=== PATIENT | female | born 1950 | race Caucasian/White ===

== ENCOUNTER 2017-05-03 06:25 | Inpatient (IN) | payer BC ==
[~2017-05-03] VITALS: Ht 157.5 cm; Wt 87.9 kg
[2017-05-03] VITALS (10 sets, daily range): BP systolic 112–158; BP diastolic 54–96; PULSE 79–127; RESP 16–20; TEMP 98.1–99.7; O2SAT 95–100
[2017-05-03] MEDS ORDERED: IRON1TAB8 PO (06:39)
[2017-05-03] MEDS ORDERED: CALC1TAB87 PO (06:39)
[2017-05-03] MEDS ORDERED: LORA-650 PO (06:39)
[2017-05-03] MEDS ORDERED: LIPI40TA PO (06:39)
[2017-05-03] MEDS ORDERED: PROT40TA PO (06:39)
[2017-05-03] MEDS ORDERED: ASPI-516 CHEW (06:40)
[2017-05-03] MEDS ORDERED: SODIUM CHLOR 0.9% 1000 ML INJ 1,000 ML IV ONE ×2 (07:08)
[2017-05-03] MEDS ORDERED: RESP: ALBUTEROL 2.5 MG/IPRATROPIUM 0.5 MG NEB (SCH) INH ONE (07:15)
[2017-05-03] MEDS ORDERED: ACETAMINOPHEN 325 MG TAB PO ONE (07:15)
--- NOTE | 2017-05-03 07:36 | RADRPT ---
EXAM DATE/TIME: 05/03/2017 07:19 [place] COMPARISON: No previous studies available for comparison. INDICATIONS : Cough, chest pain, and shortness of breath for four days. MEDICAL HISTORY : Asthma. SURGICAL HISTORY : ENCOUNTER: Initial ACUITY: 4 - 6 days PAIN SCORE: 6/10 LOCATION: Bilateral chest FINDINGS: A single view of the chest demonstrates the lungs to be symmetrically aerated without evidence of mas s, infiltrate or effusion. The cardiomediastinal contours are unremarkable. Osseous structures are intact. CONCLUSION: Normal examination for a patient of this age. Sulaiman Davenport MD on May 03, 2017 at 7:33 Board Certified Radiologist. This report was verified electronically.
--- NOTE | 2017-05-03 07:37 | PD ---
HPI Chief Complaint: Cold / Flu Symptoms Time Seen by Provider: 07:01 Travel History International Travel<30 days: No Contact w/Intl Traveler<30days: No Traveled to known affect area: No History of Present Illness HPI 66-year-old female arrives by private vehicle. She has had fever, rhinorrhea, cough and anorexia for about 24 hours. Subjective fever reported. Patient has a history of asthma. She has a history of aspirin aspiration in the remote past. Severity moderate. Timing constant. PFSH Past Medical History Asthma: Yes High Cholesterol: Yes Gastrointestinal Disorders: Yes (bowel resection) Inguinal Hernia: Yes (x 2) Influenza Vaccination: Yes : 4 Para: 4 Past Surgical History Cholecystectomy: Yes Hysterectomy: Yes (still has ovaries) Tonsillectomy: Yes Social History Alcohol Use: No Tobacco Use: No Substance Use: No Allergies-Medications (Allergen,Severity, Reaction): Coded Allergies: No Known Allergies (Unverified , 05/03/17) Reported Meds & Prescriptions Reported Meds & Active Scripts Active Reported Aspirin 81 Mg Chew 81 Mg CHEW DAILY Calcium 600 with Vitamin D (Calcium Carbonate-Cholecalciferol) 600-400 mg-Unit Tab 1 Tab PO DAILY Lipitor (Atorvastatin Calcium) 40 Mg Tab 40 Mg PO HS Allergy Relief (Loratadine) 10 Mg Tab 10 Mg PO DAILY Niferex Tablet (Multi-Vit w/ Iron) 150MG-60-1 Tablet 1 Tab PO DAILY Protonix (Pantoprazole Sodium) 40 Mg Tab 40 Mg PO DAILY Review of Systems Except as stated in HPI: all other systems reviewed are Neg General / Constitutional: Positive: Fever Respiratory: Positive: Cough, Shortness of Breath Physical Exam Narrative GENERAL: 66 yo F, WNWD, moderate distress 2/2 flulike symptoms Vital Signs Date Time Temp Pulse Resp B/P (MAP) Pulse Ox O2 Delivery O2 Flow Rate FiO2 05/03/17 07:05 110 18 158/78 (104) 99 Room Air 05/03/17 06:29 99.7 127 16 155/96 (115) 97 SKIN: Warm and dry. HEAD: Atraumatic. Normocephalic. EYES: Pupils equal and round. No scleral icterus. No injection or drainage. ENT: No nasal bleeding or discharge. Mucous membranes pink and moist. Posterior oropharynx widely patent. Trace erythema. No exudate asymmetry or deviation of the soft palate. NECK: Trachea midline. No JVD. CARDIOVASCULAR: Tachycardia. Regular rhythm. RESPIRATORY: No accessory muscle use. Clear to auscultation. Breath sounds equal bilaterally. GASTROINTESTINAL: Abdomen soft, non-tender, nondistended. Hepatic and splenic margins not palpable. MUSCULOSKELETAL: Extremities without clubbing, cyanosis, or edema. No obvious deformities. NEUROLOGICAL: Awake and alert. No obvious cranial nerve deficits. Motor grossly within normal limits. Five out of 5 muscle strength in the arms and legs. Normal speech. PSYCHIATRIC: Appropriate mood and affect; insight and judgment normal. Data Data Last Documented VS Vital Signs Date Time Temp Pulse Resp B/P (MAP) Pulse Ox O2 Delivery O2 Flow Rate FiO2 05/03/17 07:35 97 Room Air 05/03/17 07:35 18 05/03/17 07:05 110 05/03/17 06:29 99.7 Orders Orders Influenzae A/B Antigen (05/03/17 06:49) Sepsis Workup Initiated (05/03/17 ) Complete Blood Count With Diff (05/03/17 07:08) Comprehensive Metabolic Panel (05/03/17 07:08) Lactic Acid Sepsis Protocol (05/03/17 07:08) Blood Culture (05/03/17 07:08) Chest, Single Ap (05/03/17 07:08) Ecg Monitoring (05/03/17 07:08) Iv Access Insert/Monitor (05/03/17 07:08) Oximetry (05/03/17 07:08) Oxygen Administration (05/03/17 07:08) Acetaminophen (Tylenol) (05/03/17 07:15) Sodium Chlor 0.9% 1000 Ml Inj (Ns 1000 M (05/03/17 07:08) Sodium Chlor 0.9% 1000 Ml Inj (Ns 1000 M (05/03/17 07:08) Albuterol-Ipratropium Neb (Duoneb Neb) (05/03/17 07:15) Ondansetron Inj (Zofran Inj) (05/03/17 07:45) Oseltamivir (Tamiflu) (05/03/17 09:15) Ceftriaxone Inj (Rocephin Inj) (05/03/17 09:15) Azithromycin Inj (Zithromax Inj) (05/03/17 09:15) Place In Observation (05/03/17 ) Vital Signs (Adult) Q4H (05/03/17 09:12) Activity Oob Ad [place] (05/03/17 09:12) Diet Heart Healthy (05/03/17 Breakfast) Sodium Chlor 0.9% 1000 Ml Inj (Ns 1000 M (05/03/17 09:12) Sodium Chloride 0.9% Flush (Ns Flush) (05/03/17 09:30) Sodium Chloride 0.9% Flush (Ns Flush) (05/03/17 21:00) Acetaminophen (Tylenol) (05/03/17 09:30) Basic Metabolic Panel (Bmp) (05/04/17 06:00) Complete Blood Count With Diff (05/04/17 06:00) Resp Oxygen Jw C Titrat 1-4 L (05/03/17 ) Enoxaparin Inj (Lovenox Inj) (05/03/17 09:45) Naloxone Inj (Narcan Inj) (05/03/17 09:30) Docusate Sodium-Senna (Gia-Colace) (05/03/17 21:00) Magnesium Hydroxide Liq (Milk Of Magnesi (05/03/17 09:30) Sennosides (Senokot) (05/03/17 09:30) Bisacodyl Supp (Dulcolax Supp) (05/03/17 09:30) Lactulose Liq (Lactulose Liq) (05/03/17 09:30) Benzonatate (Tessalon) (05/03/17 09:30) Oxymetazoline 0.05% Jw [place] (Afrin 0.0 (05/03/17 09:30) Albuterol-Ipratropium Neb (Duoneb Neb) (05/03/17 09:30) Lactic Acid (05/03/17 09:19) Admit Order (Ed Use Only) (05/03/17 ) Vital Signs (Adult) Q4H (05/03/17 09:31) Diet Heart Healthy (05/03/17 Lunch) Activity Oob With Assistance (05/03/17 09:31) Labs Laboratory Tests Test 05/03/17 07:25 White Blood Count 12.8 TH/MM3 Red Blood Count 4.62 MIL/MM3 Hemoglobin 15.0 GM/DL Hematocrit 42.3 % Mean Corpuscular Volume 91.7 FL Mean Corpuscular Hemoglobin 32.5 PG Mean Corpuscular Hemoglobin Concent 35.4 % Red Cell Distribution Width 13.7 % Platelet Count 200 TH/MM3 Mean Platelet Volume 9.4 FL Neutrophils (%) (Auto) 81.7 % Lymphocytes (%) (Auto) 8.6 % Monocytes (%) (Auto) 8.7 % Eosinophils (%) (Auto) 0.6 % Basophils (%) (Auto) 0.4 % Neutrophils # (Auto) 10.4 TH/MM3 Lymphocytes # (Auto) 1.1 TH/MM3 Monocytes # (Auto) 1.1 TH/MM3 Eosinophils # (Auto) 0.1 TH/MM3 Basophils # (Auto) 0.0 TH/MM3 CBC Comment DIFF FINAL Differential Comment Blood Urea Nitrogen 12 MG/DL Creatinine 0.86 MG/DL Random Glucose 109 MG/DL Total Protein 7.7 GM/DL Albumin 4.1 GM/DL Calcium Level 9.9 MG/DL Alkaline Phosphatase 142 U/L Aspartate Amino Transf (AST/SGOT) 22 U/L Alanine Aminotransferase (ALT/SGPT) 28 U/L Total Bilirubin 0.6 MG/DL Sodium Level 142 MEQ/L Potassium Level 3.8 MEQ/L Chloride Level 110 MEQ/L Carbon Dioxide Level 23.6 MEQ/L Anion Gap 8 MEQ/L Estimat Glomerular Filtration Rate 66 ML/MIN Lactic Acid Level 2.9 mmol/L [facility] Medical Decision Making Medical Screen Exam Complete: Yes Emergency Medical Condition: Yes Medical Record Reviewed: Yes Differential Diagnosis flue, pna, sepsis Narrative Course CBC & BMP Diagram 05/03/17 07:25 Total Protein 7.7, Albumin 4.1, Calcium Level 9.9, Alkaline Phosphatase 142 H, Aspartate Amino Transf (AST/SGOT) 22, Alanine Aminotransferase (ALT/SGPT) 28, Total Bilirubin 0.6 Lactic acid 2.9 The patient will be admitted for IV antibiotics and for breathing treatments Case discussed with Dr. Doyle Last Impressions Chest X-Ray 05/03/17 0708 Signed Impressions: Service Date/Time: Friday, May 03, 2017 07:19 - CONCLUSION: Normal examination for a patient of this age. Sulaiman Davenport MD Diagnosis Primary Impression: Dyspnea Qualified Codes: R06.00 - Dyspnea, unspecified Additional Impression: Influenza Admitting Information Admitting Physician Requests: Admit Harley Hodges MD May 03, 2017 07:37
[2017-05-03] MEDS ORDERED: ONDANSETRON HCL 4 MG/2 ML VIAL IV PUSH ONE (07:45)
[2017-05-03 07:47] LABS: AUTOMATED NEUTROPHIL # 10.4 TH/MM3 (1.8-7.7); BASOPHIL % 0.4 % (0.0-2.0); EOSINOPHIL # 0.1 TH/MM3 (0-0.4); EOSINOPHIL % 0.6 % (0.0-4.0); HEMATOCRIT 42.3 % (35.0-46.0); LYMPH % 8.6 % (9.0-44.0); LYMPHOCYTE # 1.1 TH/MM3 (1.0-4.8); MEAN CELL VOLUME 91.7 FL (80.0-100.0); MEAN CORPUSCULAR HEMOGLOBIN 32.5 PG (27.0-34.0); MEAN CORPUSCULAR HGB CONC 35.4 % (32.0-36.0); MEAN PLATELET VOLUME 9.4 FL (7.0-11.0); MONO % 8.7 % (0.0-8.0); MONOCYTE # 1.1 TH/MM3 (0-0.9); NEUT % 81.7 % (16.0-70.0); PLATELET COUNT 200 TH/MM3 (150-450); RED BLOOD COUNT 4.62 MIL/MM3 (4.00-5.30); RED CELL DISTRIBUTION WIDTH 13.7 % (11.6-17.2); WHITE BLOOD COUNT 12.8 TH/MM3 (4.0-11.0)
[2017-05-03 08:01] LABS: LACTIC ACID SEPSIS PROTOCOL 2.9 mmol/L (0.4-2.0)
[2017-05-03 08:17] LABS: ALBUMIN 4.1 GM/DL (3.4-5.0); ALT (GPT) 28 U/L (10-53); AST (GOT) 22 U/L (15-37); BICARBONATE 23.6 MEQ/L (21.0-32.0); BLOOD UREA NITROGEN 12 MG/DL (7-18); CALCIUM 9.9 MG/DL (8.5-10.1); CHLORIDE 110 MEQ/L (98-107); CREATININE 0.86 MG/DL (0.50-1.00); GLOMERULAR FILTRATION RATE 66 ML/MIN (>89); GLUCOSE,RANDOM 109 MG/DL (74-106); SODIUM (NA) 142 MEQ/L (136-145)
[2017-05-03 08:19] LABS: ALKALINE PHOSPHATASE 142 U/L (45-117); TOTAL BILIRUBIN ADULT 0.6 MG/DL (0.2-1.0); TOTAL PROTEIN 7.7 GM/DL (6.4-8.2)
--- NOTE | 2017-05-03 09:12 | HHI.HP ---
HPI Service [facility] Primary Care Physician Unknown Admission Diagnosis Diagnoses: Chief Complaint: cough, shortness of breath Travel History International Travel<30 Days: No Contact w/Intl Traveler <30 Da: No Traveled to Known Affected Are: No History of Present Illness This is a 66-year-old female with history of asthma and dyslipidemia, with no other significant comorbidities presenting to the hospital with a 1 day history of runny nose with clear secretions, cough productive with clear sputum, low- grade subjective fever, chills, nausea with no vomiting, muscle pain, joint pains, mild headache with no possible infectious source. She took [place] plus with no relief hence patient presented to the hospital today. Patient denies any abdominal pain, diarrhea, chest pain but she does have mild shortness of breath and poor oral intake. Lactic acid is 2.9. is at bedside. Of note, she does not have any frequent asthma exacerbations. She had her last asthma attack a couple of months ago for which she was also treated for pneumonia as outpatient. She also had an episode of aspiration pneumonia after aspirating on aspirin several years ago. Review of Systems ROS Limitations: Other (All other pertinent systems were reviewed and are negative.) Past Family Social History Past Medical History Dyslipidemia Asthma - last attack was a couple months ago Past Surgical History Bowel resection - volvolus <?> Hysterectomy - DUB Both shoulder surgery for rotator cuff tonsillectomy Hernia repair x 2 Reported Medications Aspirin 81 Mg Chew 81 Mg CHEW DAILY Calcium 600 with Vitamin D (Calcium Carbonate-Cholecalciferol) 600-400 mg-Unit Tab 1 Tab PO DAILY Lipitor (Atorvastatin Calcium) 40 Mg Tab 40 Mg PO HS Allergy Relief (Loratadine) 10 Mg Tab 10 Mg PO DAILY Niferex Tablet (Multi-Vit w/ Iron) 150MG-60-1 Tablet 1 Tab PO DAILY Protonix (Pantoprazole Sodium) 40 Mg Tab 40 Mg PO DAILY Allergies: Coded Allergies: No Known Allergies (Unverified , 05/03/17) Family History Both parents had CVD Siblings had colon cancer Social History Previous smoker, stopped 5 years ago. Physical Exam Vital Signs Vital Signs Date Time Temp Pulse Resp B/P (MAP) Pulse Ox O2 Delivery O2 Flow Rate FiO2 05/03/17 07:35 97 Room Air 05/03/17 07:35 18 97 Room Air 05/03/17 07:05 110 18 158/78 (104) 99 Room Air 05/03/17 06:29 99.7 127 16 155/96 (115) 97 Physical Exam GENERAL: Not in acute distress, well-nourished. Mildly short of breath. HEAD: Atraumatic. Normocephalic. No temporal or scalp tenderness. EYES: PERRL, full EOMs, no jaundice, nonicteric, pink conjunctivae without injection, dry oral mucosa. ENT: Nose without bleeding, purulent drainage.Uvula midline. Airway patent. NECK: Trachea midline, no mass, no obvious thyromegaly. CARDIOVASCULAR: Mildly tachycardic, regular rhythm without murmurs, gallops, or rubs. RESPIRATORY: Clear to auscultation with normal respiratory effort. Breath sounds equal bilaterally. No use of accessory muscles of respiration. No wheezing. GASTROINTESTINAL: Abdomen soft, normal bowel sounds, non-tender, nondistended. [place] and exam deferred. MUSCULOSKELETAL: Extremities without clubbing, cyanosis, or edema. INTEGUMENTARY: Warm and dry, no rash of generalized distribution. NEUROLOGICAL: Awake, alert, oriented 3. No obvious cranial nerve deficits. Moves all 4 extremities, muscle strength testing 5 over 5. Motor and sensory grossly within normal limits. .Supple neck, no meningeal signs. Grossly negative cerebellar examination. No focal neurologic deficits. PSYCHIATRIC: Normal mood, appropriate affect. Laboratory Laboratory Tests Test 05/03/17 07:25 White Blood Count 12.8 Red Blood Count 4.62 Hemoglobin 15.0 Hematocrit 42.3 Mean Corpuscular Volume 91.7 Mean Corpuscular Hemoglobin 32.5 Mean Corpuscular Hemoglobin Concent 35.4 Red Cell Distribution Width 13.7 Platelet Count 200 Mean Platelet Volume 9.4 Neutrophils (%) (Auto) 81.7 Lymphocytes (%) (Auto) 8.6 Monocytes (%) (Auto) 8.7 Eosinophils (%) (Auto) 0.6 Basophils (%) (Auto) 0.4 Neutrophils # (Auto) 10.4 Lymphocytes # (Auto) 1.1 Monocytes # (Auto) 1.1 Eosinophils # (Auto) 0.1 Basophils # (Auto) 0.0 CBC Comment DIFF FINAL Differential Comment Blood Urea Nitrogen 12 Creatinine 0.86 Random Glucose 109 Total Protein 7.7 Albumin 4.1 Calcium Level 9.9 Alkaline Phosphatase 142 Aspartate Amino Transf (AST/SGOT) 22 Alanine Aminotransferase (ALT/SGPT) 28 Total Bilirubin 0.6 Sodium Level 142 Potassium Level 3.8 Chloride Level 110 Carbon Dioxide Level 23.6 Anion Gap 8 Estimat Glomerular Filtration Rate 66 Lactic Acid Level 2.9 Date/Time Source Procedure Growth Status 05/03/17 07:25 Blood Peripheral Aerobic Blood Culture Pending Received 05/03/17 07:25 Blood Peripheral Anaerobic Blood Culture Pending Received 05/03/17 00:00 Nasal Washing Influenza Types A,B Antigen ([place]) - Final NEGATIVE FOR FLU A AND B ANTIGEN.... Complete Result Diagram: 05/03/1725 05/03/17 07 Imaging Last Impressions Chest X-Ray 05/03/1708 Signed Impressions: Service Date/Time: Wednesday, May 03, 2017 07:19 - CONCLUSION: Normal examination for a patient of this age. Sulaiman Davenport MD Capcristóbal VTE Risk Assessment Caprini VTE Risk Assessment: Mod/High Risk (score >= 2) Caprini Risk Assessment Model Point Value = 1 Point Value = 2 Point Value = 3 Point Value = 5 Age 41-60 Minor surgery BMI > 25 kg/m2 Swollen legs Varicose veins or History of unexplained or recurrent spontaneous Oral contraceptives or hormone replacement Sepsis (< 1 month) Serious lung disease, including pneumonia (< 1 month) Abnormal pulmonary function Acute myocardial infarction Congestive heart failure (< 1 month) History of inflammatory bowel disease Medical patient at bed rest Age 61-74 Arthroscopic surgery Major open surgery (> 45 min) Laparoscopic surgery (> 45 min) Malignancy Confined to bed (> 72 hours) Immobilizing plaster cast Central venous access Age >= 75 History of VTE Family history of VTE Factor V Leiden Prothrombin [id number] Lupus anticoagulant Anticardiolipin antibodies Elevated serum homocysteine Heparin-induced thrombocytopenia Other congenital or acquired thrombophilia Stroke (< 1 month) Elective arthroplasty Hip, pelvis, or leg fracture Acute spinal cord injury (< 1 month) Prophylaxis Regimen Total Risk Factor Score Risk Level Prophylaxis Regimen 0-1 Low Early ambulation 2 Moderate Order ONE of the following: *Sequential Compression Device (SCD) *Heparin 5000 units SQ BID 3-4 Higher Order ONE of the following medications: *Heparin 5000 units SQ TID *Enoxaparin/Lovenox 40 mg SQ daily (WT < 150 kg, CrCl > 30 mL/min) *Enoxaparin/Lovenox 30 mg SQ daily (WT < 150 kg, CrCl > 10-29 mL/min) *Enoxaparin/Lovenox 30 mg SQ BID (WT < 150 kg, CrCl > 30 mL/min) AND/OR *Sequential Compression Device (SCD) 5 or more Highest Order ONE of the following medications: *Heparin 5000 units SQ TID (Preferred with Epidurals) *Enoxaparin/Lovenox 40 mg SQ daily (WT < 150 kg, CrCl > 30 mL/min) *Enoxaparin/Lovenox 30 mg SQ daily (WT < 150 kg, CrCl > 10-29 mL/min) *Enoxaparin/Lovenox 30 mg SQ BID (WT < 150 kg, CrCl > 30 mL/min) AND *Sequential Compression Device (SCD) Assessment and Plan Assessment and Plan This is a 66-year-old female with history of asthma and dyslipidemia presenting with shortness of breath, fever, joint pain and runny nose Sepsis secondary to systemic viral illness versus influenza - rapid flu negative , however with leukocytosis, tachycardia, and definite signs of systemic illness , and high risk for flu, we will treat S flu versus viral illness, doubt pneumonia. Chest x-ray personally reviewed unremarkable. Status post 1 dose of ceftriaxone and azithromycin, hold off on antibiotics, continue Tamiflu for 5 days. Continue IVF, status post 2 L bolus. Recheck lactic acid. Admit as inpatient. Symptomatic management with oxymetazoline, duo nebs every 4 hours as needed every 6 hours [id number], normal saline, Tylenol for fever, Tessalon for cough. Recheck CBC tomorrow. Check sputum culture. Mild asthma exacerbation-no active wheezing, duo nebs around the clock and as needed. Dyslipidemia-restart atorvastatin Dehydration-continue IVF. Lovenox for DVT prophylaxis Heart healthy diet Code Status Full code Discussed Condition With Patient and Mary Doyle MD May 03, 2017 09:12
[2017-05-03] MEDS ORDERED: cefTRIAXone INJ 1,000 MG in SODIUM CHLORIDE 0.9% INJ 100 ML IV ONE (09:15)
[2017-05-03] MEDS ORDERED: AZITHROMYCIN INJ 500 MG in SODIUM CHLOR 0.9% 250 ML INJ 250 ML IV ONE (09:15)
[2017-05-03] MEDS ORDERED: OSELTAMIVIR PHOSPHATE 75 MG CAP PO ONE (09:15)
[2017-05-03] MEDS ORDERED: SENNOSIDES 8.6 MG TAB PO PRN (09:30)
[2017-05-03] MEDS ORDERED: SODIUM CHLORIDE 0.9% FLUSH 10 ML FLUSH IV FLUSH PRN (09:30)
[2017-05-03] MEDS ORDERED: NALOXONE HCL 0.4 MG/ML AMP IV PUSH PRN (09:30)
[2017-05-03] MEDS ORDERED: RESP: ALBUTEROL 2.5 MG/IPRATROPIUM 0.5 MG NEB (PRN) NEB ×2 (09:30→10:00)
[2017-05-03] MEDS ORDERED: OXYMETAZOLINE HCL 0.05% 15 ML NASAL SPRAY NASAL PRN (09:30)
[2017-05-03] MEDS ORDERED: LACTULOSE SYRUP 20 GM/30 ML CUP PO PRN (09:30)
[2017-05-03] MEDS ORDERED: BISACODYL 10 MG SUPP RECTAL PRN (09:30)
[2017-05-03] MEDS ORDERED: MAGNESIUM HYDROXIDE SUSP 30 ML CUP PO PRN (09:30)
[2017-05-03] MEDS: ENOXAPARIN SODIUM 30 MG/0.3 ML SYRINGE SQ SCH (10:03)
[2017-05-03] MEDS: BENZONATATE 100 MG CAP PO PRN (10:19)
[2017-05-03] MEDS: SODIUM CHLOR 0.9% 1000 ML INJ 1,000 ML IV SCH ×2 (10:19→17:33)
[2017-05-03] MEDS: ACETAMINOPHEN 325 MG TAB PO PRN ×2 (10:40→18:31)
[2017-05-03] MEDS: RESP: ALBUTEROL 2.5 MG/IPRATROPIUM 0.5 MG NEB (SCH) NEB ×2 (13:18→19:23)
[2017-05-03] MEDS: LORATADINE 10 MG TAB PO SCH (14:49)
[2017-05-03] MEDS: PANTOPRAZOLE SOD 40 MG DELAYED RELEASE TAB PO SCH (14:49)
[2017-05-03] MEDS: OSELTAMIVIR PHOSPHATE 75 MG CAP PO SCH (20:23)
[2017-05-03] MEDS: DOCUSATE SODIUM 50 MG/SENNA 8.6 MG TAB PO SCH (20:24)
[2017-05-03] MEDS: SODIUM CHLORIDE 0.9% FLUSH 10 ML FLUSH IV FLUSH SCH (20:24)
[2017-05-03] MEDS ORDERED: ATORVASTATIN 40 MG TAB PO SCH (21:00)
[2017-05-04] VITALS: BP 124/55; PULSE 87; PULSE 93; RESP 18; TEMP 98.5; O2SAT 97
[2017-05-04] MEDS: ACETAMINOPHEN 325 MG TAB PO PRN ×2 (01:23→05:52)
[2017-05-04] MEDS: BENZONATATE 100 MG CAP PO PRN (01:25)
[2017-05-04] MEDS ORDERED: IBUPROFEN 600 MG TAB PO ONE (01:45)
[2017-05-04] MEDS: SODIUM CHLOR 0.9% 1000 ML INJ 1,000 ML IV SCH ×2 (02:04→10:26)
[2017-05-04 03:46] VITALS: PULSE 81
[2017-05-04 04:00] VITALS: BP 119/60; PULSE 76; RESP 16; TEMP 98; O2SAT 93
[2017-05-04 07:40] LABS: AUTOMATED NEUTROPHIL # 5.5 TH/MM3 (1.8-7.7); BASOPHIL % 0.5 % (0.0-2.0); EOSINOPHIL # 0.1 TH/MM3 (0-0.4); EOSINOPHIL % 1.2 % (0.0-4.0); HEMOGLOBIN 12.2 GM/DL (11.6-15.3); LYMPH % 20.9 % (9.0-44.0); LYMPHOCYTE # 1.7 TH/MM3 (1.0-4.8); MEAN CELL VOLUME 93.8 FL (80.0-100.0); MEAN CORPUSCULAR HEMOGLOBIN 32.8 PG (27.0-34.0); MEAN PLATELET VOLUME 9.5 FL (7.0-11.0); MONO % 9.5 % (0.0-8.0); MONOCYTE # 0.8 TH/MM3 (0-0.9); NEUT % 67.9 % (16.0-70.0); PLATELET COUNT 155 TH/MM3 (150-450); RED BLOOD COUNT 3.73 MIL/MM3 (4.00-5.30); RED CELL DISTRIBUTION WIDTH 13.8 % (11.6-17.2)
[2017-05-04 08:00] VITALS: BP 115/57; PULSE 60; PULSE 86; RESP 20; TEMP 97.7; O2SAT 96
[2017-05-04 08:00] LABS: BICARBONATE 23.5 MEQ/L (21.0-32.0); CALCIUM 8.8 MG/DL (8.5-10.1); CREATININE 0.69 MG/DL (0.50-1.00)
[2017-05-04] MEDS: RESP: ALBUTEROL 2.5 MG/IPRATROPIUM 0.5 MG NEB (SCH) NEB (08:00)
[2017-05-04] MEDS: ENOXAPARIN SODIUM 30 MG/0.3 ML SYRINGE SQ SCH (08:54)
[2017-05-04] MEDS: DOCUSATE SODIUM 50 MG/SENNA 8.6 MG TAB PO SCH (08:55)
[2017-05-04] MEDS: PANTOPRAZOLE SOD 40 MG DELAYED RELEASE TAB PO SCH (08:55)
[2017-05-04] MEDS: OSELTAMIVIR PHOSPHATE 75 MG CAP PO SCH (08:55)
[2017-05-04] MEDS: LORATADINE 10 MG TAB PO SCH (08:55)
[2017-05-04] MEDS: SODIUM CHLORIDE 0.9% FLUSH 10 ML FLUSH IV FLUSH SCH (08:56)
[2017-05-04] MEDS ORDERED: ASPIRIN 81 MG CHEW TAB CHEW SCH (09:00)
[2017-05-04] MEDS ORDERED: BENZ100 PO (11:00)
[2017-05-04] MEDS ORDERED: OSEL75 PO (11:00)
--- NOTE | 2017-05-04 11:03 | HHI.DCPOC ---
Discharge Care Plan Diagnosis: (1) Asthma exacerbation (2) Leukocytosis (3) Acute viral syndrome Goals to Promote Your Health * To prevent worsening of your condition and complications * To maintain your health at the optimal level Directions to Meet Your Goals Take your medications as prescribed Follow your dietary instruction Follow activity as directed Keep your appointments as scheduled Take your immunizations and boosters as scheduled If your symptoms worsen call your PCP, if no PCP go to Urgent Care Center or Emergency Room Smoking is Dangerous to Your Health. Avoid second hand smoke Call the 24-hour hour crisis hotline for domestic abuse at Mark Michelle MD May 04, 2017 11:03
[2017-05-04] MEDS ORDERED: ALBUAER3 INH (11:04)
--- NOTE | 2017-05-04 11:05 | HHI.PR ---
Subjective Remarks Patient reports she is feeling much better. Comfortable on room air. She has a mild headache otherwise no other issues. Feels comfortable going home. Objective Vitals Vital Signs Date Time Temp Pulse Resp B/P (MAP) Pulse Ox O2 Delivery O2 Flow Rate FiO2 05/04/17 08:00 60 05/04/17 08:00 97.7 86 20 115/57 (76) 96 05/04/17 04:00 98.0 76 16 119/60 (79) 93 05/04/17 03:46 81 05/04/17 00:00 98.5 93 18 124/55 (78) 97 05/04/17 00:00 87 05/03/17 20:00 99.0 88 18 112/54 (73) 100 05/03/17 19:52 103 05/03/17 19:30 Room Air 05/03/17 19:23 95 21 05/03/17 16:00 90 05/03/17 16:00 98.9 101 20 115/58 (77) 95 05/03/17 15:58 Room Air 05/03/17 13:00 80 05/03/17 12:35 98.1 90 20 123/57 (79) 97 I/O 05/03/17 05/03/17 05/03/17 05/04/17 05/04/17 05/04/17 07:00 15:00 23:00 07:00 15:00 23:00 Intake Total 360 ml 1592 ml Balance 360 ml 1592 ml Intake Oral 360 ml IV Total 1592 ml # Voids 2 4 # Bowel Movements 0 Result Diagram: 05/04/17 0625 05/04/17 0625 Objective Remarks GENERAL: This is a well-nourished, well-developed patient, in no apparent distress. CARDIOVASCULAR: Normal rate and regular rhythm without murmurs, gallops, or rubs. RESPIRATORY: Good respiratory efforts. Breath sounds equal and clear to auscultation bilaterally. GASTROINTESTINAL: Abdomen soft, non-tender, non-distended. Normal active bowel sounds MUSCULOSKELETAL: Extremities without cyanosis, or edema. NEURO: Alert & Oriented x4 to person, place, time, situation. Moves all ext x4 PSYCH: Appropriate mood and affect. A/P Assessment and Plan 66-year-old female with history of asthma and dyslipidemia presenting with shortness of breath, fever, joint pain and runny nose. The patient's symptomatology were believed to be due to viral syndrome such as influenza. Her chest x-ray unremarkable. She was treated with Tamiflu due to concern for influenza. She quickly improved. She has mild asthma exacerbation and was treated with duo nebs. The patient's symptoms quickly improved. She is deemed stable for discharge home. She will finish the course of Tamiflu. Discharge home in good condition Activity: Regular as tolerated Diet: Regular as tolerated Meds: Per med rec Follow-up with: PCP as needed.. Mark Michelle MD May 04, 2017 11:05
[2017-05-04] MEDS ORDERED: ACETAMINOPHEN/HYDROcodone 325 MG/5 MG TAB PO ONE (11:15)
[2017-05-04 11:30] VITALS: BP 123/62; PULSE 82; RESP 20; TEMP 98; O2SAT 94
== END 2017-05-04 12:26 | disposition home or self-care (01) | DRG 203 ==
LOC: NEPC 06:25 → NEDA 09:35 → OBSVTOIN 10:04 → N04B 12:30
PROVIDERS: ADMIT Family Medicine; ATTEND Family Medicine
PROC: 3E0F7GC Introduction of Other Therapeutic Substance into Respiratory Tract, Via Natural or Artificial Opening (ICD-10-PCS; principal; 2017-05-03)
DX: J45.901 Unspecified asthma with (acute) exacerbation (principal); R63.0 Anorexia; E78.5 Hyperlipidemia, unspecified; Z87.891 Personal history of nicotine dependence; E86.0 Dehydration; Z90.710 Acquired absence of both cervix and uterus
CPT/HCPCS: 71045; 80048; 80053; 83605; 85025; 87040; 87804; 94640; 94664; 96361; 96374; J0456; J0696; J1650; J2405; J7030; J7050